=== PATIENT | female | born 1965 | race African-American/Black ===

== ENCOUNTER 2017-06-19 11:15 | Outpatient (CLI) | payer OTHER ==
[2017-06-19 13:52] LABS: Anion Gap 14 mmol/L (10-20); BUN (Urea Nitrogen) 11 mg/dL (7.0-18.7); Calc. Creatinine Clearance 0 mL/min (70-130); Calcium 9.8 mg/dL (7.8-10.44); Carbon Dioxide 25 mmol/L (22-29); Chloride 103 mmol/L (98-107); Estimated GFR-MDRD Greater than 90; Glucose 70 mg/dL (70-105); Potassium 4.2 mmol/L (3.5-5.1); Sodium 138 mmol/L (136-145)
[2017-06-19 13:55] LABS: Bilirubin Negative (Negative); Blood, Urine Moderate (Negative); Clarity CLEAR (Clear); Glucose, Urine (Dipstick) Negative (Negative); Leukocyte Negative (Negative); Nitrite Negative (Negative); Protein, Urine (Dipstick) Negative (Neg-Trace); Urobilinogen 0.2 mg/dL (0.2-1.0)
--- NOTE | 2017-06-19 14:15 | CT ---
CT ABDOMEN WITH AND WITHOUT IV CONTRAST CT PELVIS WITH AND WITHOUT IV CONTRAST: DTAE: 06/19/17. HISTORY: Microhematuria. The patient also complains of urinary frequency for 3 months. History of hysterecto my. Duplicated left ureter. FINDINGS: Lung bases, liver, spleen, and pancreas demonstrate a normal CT appearance. There is a pelvic kidney present on the right. The left kidney is located in normal position. There is no hydronephrosis or renal calculus seen. No enhancing renal mass is identified. History indica al duplicated left ureter, but a duplicated left ureter is not visualized on this exam. The urinary bladder is mostly decompressed and not well evaluated. There is minimal vascular calcification seen in the right common iliac artery. Abdominal aorta is no rmal in appearance. The appendix is visualized and normal in caliber. There is a tiny amount of free fluid in the pelvis which may be physiologic. Uterus is absent relate d to patient's history of prior hysterectomy. IMPRESSION: 1. Right-sided pelvic kidney. The kidneys otherwise have a normal CT appearance bilaterally without evidence of a renal calculus or enhancing renal mass. There is no hydronephrosis. 2. Hysterectomy. 3. Tiny amount of free fluid in the pelvis probably physiologic in origin. 4. Intravenous pyelogram was performed following this examination. POS: [facility]
[2017-06-19 14:24] LABS: Bacteria/HPF None Seen HPF (None Seen); Hyaline Casts/LPF NONE SEEN LPF (0-3 Hyaline); Squamous Epithelial 0-3 HPF (0-3); WBC/HPF 0-3 HPF (0-3)
--- NOTE | 2017-06-19 15:02 | RAD ---
IVP FOLLOWING CT EXAMINATION: Date: 06-19-17 History: Ectopic kidney, hematuria. FINDINGS: Stenographer Secretary view of the abdomen demonstrates lucent centered calcifications overlying the pelvis bilaterall y, likely related to multiple phleboliths. No additional suspicious calcifications are seen. There is a nonspecific bowel gas pattern. After the administration of intravenous contrast, there is contrast seen in the renal collecting syst ems bilaterally on the 5 minute image. There is evidence of a pelvic kidney on the right which was no ricardo on CT scan examination. There is no evidence of hydronephrosis. The right renal collecting struct ures are not well seen due to overlying osseous structures secondary to positioning of the kidney. Th ere is otherwise no definite filling defect seen within the visualized bilateral renal collecting sys tems and ureters. There is no hydroureter present. Urinary bladder is incompletely distended, but portion of the distended urinary bladder demonstrates no definite contour abnormality. No post void residual is seen on post void image. IMPRESSION: 1. Right sided pelvic kidney. 2. No evidence of hydronephrosis. POS: [facility]
[2017-06-19] MEDS ORDERED: Iopamidol 370 76% 100 ML VIAL ONE (16:44)
== END 2017-06-19 11:16 | disposition home or self-care (01) ==
LOC: RAD 11:15
PROVIDERS: ATTEND Urology
DX: Q63.2 Ectopic kidney (principal); R31.29 Other microscopic hematuria; Q62.5 Duplication of ureter; Z90.710 Acquired absence of both cervix and uterus
CPT/HCPCS: 74178; 74410; 80048; 81001

== ENCOUNTER 2018-05-18 10:33 | Outpatient (CLI) | payer OTHER | END 2018-05-18 10:34 | disposition home or self-care (01) | LOC: BICMAMMO 10:33 | PROVIDERS: ATTEND Family Medicine | DX: Z12.31 Encounter for screening mammogram for malignant neoplasm of breast (principal); Z80.3 Family history of malignant neoplasm of breast | CPT/HCPCS: 77063; 77067 ==